=== PATIENT | female | born 1980 | race African-American/Black ===

== ENCOUNTER 2024-03-14 01:33 | Day surgery (SDC) | payer BC, SELFPAY ==
[2024-03-06 11:00] VITALS: BMI 29.1
[2024-03-14 07:20] VITALS: BP 115/88; PULSE 91; RESP 16; TEMP 36.1; O2SAT 100
[2024-03-14] MEDS: LACTATED RINGERS 1,000 ML 150 ML IV CONT (07:33)
--- NOTE | 2024-03-14 07:51 | WPDANESEPPF ---
Anes - Initial Pre Proc Eval Procedure: Operation Date: 03/14/24 08:30 Proposed Procedures p Screening Colonoscopy - Henrique Washington MD Date/Time: 03/14/24 07:51 Surgeon: Henrique Washington MD Pre Op Diagnosis: Neoplasm screening Patient Data Age: 43 Gender: F Height: 1.55 m Weight: 69.8 kg Last Vital Signs Temp 36.1 C L 03/14/24 07:20 Pulse 91 03/14/24 07:20 Resp 16 03/14/24 07:20 BP 115/88 03/14/24 07:20 Pulse Ox 100 03/14/24 07:20 O2 Del Method Room Air 03/14/24 07:20 Allergies Allergy/AdvReac Type Severity Reaction Status Date / Time No Known Allergies Allergy Verified 03/14/24 07:19 Home Medications Medication Instructions Recorded Confirmed Type albuterol sulfate 90 mcg/actuation 1 inh inhalation Q4H PRN Shortness 08/29/21 03/14/24 History aerosol inhaler Of Breath ergocalciferol (vitamin D2) 1,250 1,250 mcg PO WEEKLY 08/29/21 03/14/24 History mcg (50,000 unit) capsule hydroxychloroquine 200 mg tablet 200 mg PO BID 08/29/21 03/14/24 History levothyroxine 100 mcg tablet 100 mcg PO DAILY 08/29/21 03/14/24 History prednisone 5 mg tablet 5 mg PO BID 08/29/21 03/14/24 History pregabalin 200 mg capsule (Lyrica) 200 mg PO BID 08/29/21 03/14/24 History rosuvastatin 10 mg tablet 10 mg PO DAILY 04/04/22 03/14/24 History letrozole 2.5 mg tablet 2.5 mg PO DAILY 11/27/22 03/14/24 History metoprolol succinate 25 mg 25 mg PO DAILY 11/27/22 03/14/24 History tablet,extended release 24 hr oxycodone-acetaminophen 5 mg-325 1 tablet PO PRN PRN Pain 11/27/22 03/14/24 History mg tablet valacyclovir 1 gram tablet 1,000 mg PO DAILY #30 tabs 09/21/23 03/14/24 Rx abemaciclib 100 mg tablet 100 mg PO DAILY 03/06/24 03/14/24 History (Verfabby) calcium carbonate-vitamin D3 600 1 tablet PO DAILY 03/06/24 03/14/24 History mg-125 unit tablet loperamide 2 mg capsule 2 mg PO Q4H PRN Diarrhea 03/06/24 03/14/24 History meloxicam 15 mg tablet 15 mg PO DAILY 03/06/24 03/14/24 History multivitamin with minerals-folic 1 tablet PO DAILY 03/06/24 03/14/24 History acid 120 mcg chewable tablet (Adult Multivitamin Gummies) prochlorperazine maleate 10 mg 10 mg PO Q4-5H PRN Nausea 03/06/24 03/14/24 History tablet zinc 25 mg tablet 25 mg PO DAILY 03/06/24 03/14/24 History Patient hx anesthesia problems: none Family hx anesthesia problems: none Results Review: All pre-operative results and documents have been reviewed as part of the pre-operative evaluation. 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 Breast cancer, left Chronic, continuous use of opioids Fibromyalgia High cholesterol Hypertension Hypothyroidism Lupus Ovarian cyst Surgical History Surgical History H/O left breast biopsy (06/21/22) Ductal carcinoma in situ H/O lymph node biopsy 06/21/2022 - Left axillary core bx - invasive carcinoma and Cribriform features H/O: hysterectomy (12/13/21) hysterectomy History of hernia surgery History of myomectomy (~01/2018) open myomectomy History of reversal of tubal ligation History of shoulder surgery (~09/2018) Social History Social History (Updated 11/27/22 @ 13:43 by Esme Lange MA) Smoking status: Never smoker Alcohol intake: never Substance use: never Substance use type: does not use Lack of Transportation: No Lack of Food: Never True Current Housing: I Have Housing Concerned About Future Housing: No Difficulty Paying Gas/Electric Bills: No Difficulty Paying for Meds: No Currently Unemployed: No Education: Master's Degree or Higher Difficulty w/ Childcare or Family Care: No Living arrangements: alone Additional living arrangements comments: single Occupation/Education: occupation 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[employer] Gender identity (if verbalized by the patient): Female Sexual Orientation (if Verbalized by the Patient): Straight or Heterosexual Spiritual care concerns: No Anes - Eval Final PreProcedure Day of Procedure 03/14/24 07:51 Patient weight: overweight Heart: regular rate and rhythm Lungs: clear to auscultation Airway: Mallampati scale class II Neurological: alert and oriented Last oral intake: >/= 8 hours ASA classification: III Emergent: no Anesthetic plan: proceed Anesthesia type and monitoring: general GIVS and standard monitoring Results Review: All pre-operative results and documents have been reviewed as part of the pre-operative evaluation. Informed Consent: The patient's anesthetic plan and its attendant risks and benefits were discussed with the patient/family/POA. Questions were solicited and answers provided to the satisfaction of the patient/family/POA.
--- NOTE | 2024-03-14 08:39 | PM.HPGS ---
History of Present Illness History of Present Illness Consent: Risks, benefits, and alternatives have been discussed and questions answered. Patient agrees to proceed with procedure. 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 Breast cancer, left Chronic, continuous use of opioids Colon cancer screening Fibromyalgia High cholesterol Hypertension Hypothyroidism Lupus Ovarian cyst Surgical History Surgical History H/O left breast biopsy (06/21/22) Ductal carcinoma in situ H/O lymph node biopsy 06/21/2022 - Left axillary core bx - invasive carcinoma and Cribriform features H/O: hysterectomy (12/13/21) hysterectomy History of hernia surgery History of myomectomy (~01/2018) open myomectomy History of reversal of tubal ligation History of shoulder surgery (~09/2018) Social History Social History (Updated 11/27/22 @ 13:43 by Esme Lange MA) Smoking status: Never smoker Alcohol intake: never Substance use: never Substance use type: does not use Lack of Transportation: No Lack of Food: Never True Current Housing: I Have Housing Concerned About Future Housing: No Difficulty Paying Gas/Electric Bills: No Difficulty Paying for Meds: No Currently Unemployed: No Education: Master's Degree or Higher Difficulty w/ Childcare or Family Care: No Living arrangements: alone Additional living arrangements comments: single Occupation/Education: occupation 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[employer] Gender identity (if verbalized by the patient): Female Sexual Orientation (if Verbalized by the Patient): Straight or Heterosexual Spiritual care concerns: No Meds Home Medications and Allergies Home Medications Medication Instructions Recorded Confirmed Type albuterol sulfate 90 mcg/actuation 1 inh inhalation Q4H PRN Shortness 08/29/21 03/14/24 History aerosol inhaler Of Breath ergocalciferol (vitamin D2) 1,250 1,250 mcg PO WEEKLY 08/29/21 03/14/24 History mcg (50,000 unit) capsule hydroxychloroquine 200 mg tablet 200 mg PO BID 08/29/21 03/14/24 History levothyroxine 100 mcg tablet 100 mcg PO DAILY 08/29/21 03/14/24 History prednisone 5 mg tablet 5 mg PO BID 08/29/21 03/14/24 History pregabalin 200 mg capsule (Lyrica) 200 mg PO BID 08/29/21 03/14/24 History rosuvastatin 10 mg tablet 10 mg PO DAILY 04/04/22 03/14/24 History letrozole 2.5 mg tablet 2.5 mg PO DAILY 11/27/22 03/14/24 History metoprolol succinate 25 mg 25 mg PO DAILY 11/27/22 03/14/24 History tablet,extended release 24 hr oxycodone-acetaminophen 5 mg-325 1 tablet PO PRN PRN Pain 11/27/22 03/14/24 History mg tablet valacyclovir 1 gram tablet 1,000 mg PO DAILY #30 tabs 09/21/23 03/14/24 Rx abemaciclib 100 mg tablet 100 mg PO DAILY 03/06/24 03/14/24 History (Verzenio) calcium carbonate-vitamin D3 600 1 tablet PO DAILY 03/06/24 03/14/24 History mg-125 unit tablet loperamide 2 mg capsule 2 mg PO Q4H PRN Diarrhea 03/06/24 03/14/24 History meloxicam 15 mg tablet 15 mg PO DAILY 03/06/24 03/14/24 History multivitamin with minerals-folic 1 tablet PO DAILY 03/06/24 03/14/24 History acid 120 mcg chewable tablet (Adult Multivitamin Gummies) prochlorperazine maleate 10 mg 10 mg PO Q4-5H PRN Nausea 03/06/24 03/14/24 History tablet zinc 25 mg tablet 25 mg PO DAILY 03/06/24 03/14/24 History Allergies Allergy/AdvReac Type Severity Reaction Status Date / Time No Known Allergies Allergy Verified 03/14/24 07:19 Vital Signs Vital Signs - 24 hr 03/14/24 07:20 Temperature 96.9 F L Pulse Rate 91 Respiratory Rate 16 Blood Pressure 115/88 Pulse Oximetry 100 Oxygen Delivery Room Air Exam Const: General: comfortable and no acute distress HENMT: Face/Nose/Sinus: Normal nares present Eyes: General: appearance normal, both eyes and all related structures Neck: Neck: no JVD Resp: Auscultation: clear to auscultation bilaterally Cardio: Rate: regular rate Rhythm: regular rhythm GI: Inspection: non-distended GI Palp: Yes Soft to palpation Skin: General skin exam: normal color Neuro: General: gait normal Speech: normal speech Extrem: General: normal to inspection Psych: Mental Status: mental status grossly normal Assessment and Plan Assessment and plan (1) Colon cancer screening: Code(s): Z12.11 - Encounter for screening for malignant neoplasm of colon Status: Acute Assessment and Plan: colonoscopy
[2024-03-14 09:07] VITALS: BP 90/55; PULSE 80; RESP 19; O2SAT 98
[2024-03-14 09:17] VITALS: BP 109/78; PULSE 92; RESP 22; O2SAT 100
[2024-03-14 09:27] VITALS: BP 102/56; PULSE 82; RESP 23; O2SAT 100
== END 2024-03-14 09:38 | disposition home or self-care (01) ==
PROVIDERS: PCP Internal Medicine; Referring Provider Internal Medicine; Visit Provider Internal Medicine Gastroenterology
PROC: 0DJD8ZZ Inspection of Lower Intestinal Tract, Via Natural or Artificial Opening Endoscopic (ICD-10-PCS; CPT 45378; principal; 2024-03-14 08:30)
DX: Z12.11 Encounter for screening for malignant neoplasm of colon (principal); I10 Essential (primary) hypertension; E03.9 Hypothyroidism, unspecified; M79.7 Fibromyalgia; M32.9 Systemic lupus erythematosus, unspecified; Z85.3 Personal history of malignant neoplasm of breast; Z79.891 Long term (current) use of opiate analgesic; Z79.51 Long term (current) use of inhaled steroids
CPT/HCPCS: 45378; J2704; J7120